=== PATIENT | male | born 1985 | race Caucasian/White ===

== ENCOUNTER → 2022-04-06 08:58 | Outpatient (BNVA) | payer BC, SELFPAY | PROVIDERS: Visit Provider Family Medicine | DX: Z30.9 Encounter for contraceptive management, unspecified (principal); L85.3 Xerosis cutis | CPT/HCPCS: 80053; 80061; 85025 ==

== ENCOUNTER → 2023-04-22 07:41 | Outpatient (BNVA) | payer BC, SELFPAY | PROVIDERS: PCP Family Medicine; Visit Provider Family Medicine Adult Medicine | DX: J02.9 Acute pharyngitis, unspecified (principal); J06.9 Acute upper respiratory infection, unspecified | CPT/HCPCS: 87071; 87400; 87880 ==

== ENCOUNTER → 2024-11-01 08:07 | Outpatient (BNVA) | payer BC, SELFPAY | PROVIDERS: PCP Family Medicine; Visit Provider Family Medicine | DX: R79.89 Other specified abnormal findings of blood chemistry (principal); Z13.6 Encounter for screening for cardiovascular disorders | CPT/HCPCS: 80053; 80061; 84403; 85025; 86140 ==

== ENCOUNTER 2024-12-11 08:37 | Day surgery (SDC) | payer BC, SELFPAY ==
[2024-12-11 08:57] VITALS: BP 116/72; PULSE 52; RESP 16; TEMP 36.2; O2SAT 99; BMI 25.0
--- NOTE | 2024-12-11 09:20 | P.ANESASSM_ITS ---
Pre-Anesthetic Assessment Height/Weight: Height 1.91 m Weight 90.718 kg Temp Pulse Resp BP Pulse Ox O2 Del Method 97.1 F L 52 L 16 116/72 99 Room Air 12/11/24 08:57 12/11/24 08:57 12/11/24 08:57 12/11/24 08:57 12/11/24 08:57 12/11/24 08:57 Preop Diagnosis: screening Operation Date: 12/11/24 10:00 Proposed Procedures p Colonoscopy 29648 G0105 Z12.11(Not Applicable) - Chris Reyes MD Familial anesthetic complications: none Was Beta Jarad taken within 24 hours: N/A Was Clonidine taken within 24 hours: N/A Last intake: Intake Last Liquid Date 12/10/24 Last Liquid Time 22:00 Last Solid Date 12/09/24 Last Solid Time 19:30 Social No alcohol and No tobacco Exam alert, oriented x 3 and clear to auscultation bilaterally Airway Mallampati: Class II History/ROS No significant history except as noted Pulmonary None reported CV/HEM None reported None reported Hepatic None reported GI None reported Metabolic None reported Musc/skel None reported Neuropsych None reported Anesthetic Plan ASA status: 2 Anesthesia: Anesthesia Evaluation and MAC Risk of > 500 ml blood loss (7ml/kg in children): No Medications/Allergies Allergies Allergy/AdvReac Type Severity Reaction Status Date / Time codeine Allergy Unknown Verified 12/06/24 10:50 Current Medications Generic Name Dose Route Start Last Admin Trade Name Freq PRN Reason Stop Dose Admin Sodium Chloride 1,000 mls @ 15 mls/hr 12/11/24 08:54 12/11/24 09:04 Sodium Chloride 0.9% IV 12/12/24 08:53 15 mls/hr .Q24H PRN Administration COLONOSCOPY FLUIDS PFSH Anesthesia Medical History Overweight (BMI 25.0-29.9) URI with cough and congestion Ruptured disk L5, disc was filled back up, 2015 No pertinent past medical history Surgical History No significant past surgical history Family History Grandfather Cancer lung Mother Cancer colorectal Father Cancer pancreatic?? Other Dementia Stroke Denies family history of Diabetes CAD (coronary artery disease) Clotting disorder Hyperlipidemia Psychiatric illness Chronic kidney disease (CKD) Anesthesia complication Bleeding disorder Lung disease Hypertension Social History Smoking and tobacco/nicotine status: former use of tobacco/nicotine Second hand smoke exposure: No Alcohol intake: current Alcohol intake frequency: 0-2 Drinks per Day Substance/Drug Use: never Lives independently: Yes Household members: spouse Housing: House Marital status: Number of children: 2 Current occupational status: employed Current occupation: [employer] Current gender identity: Male
--- NOTE | 2024-12-11 09:51 | P.HP_ITS ---
Same Day Surgery H&P Indication for Procedure/HPI DATE OF PROCEDURE: December 11, 2024 CHIEF COMPLAINT/INDICATIONFOR SURGICAL PROCEDURE: screening colonoscopy PREOP DIAGNOSIS: screening colonoscopy PLANNED PROCEDURE: Operation Date: 12/11/24 10:00 Proposed Procedures p Colonoscopy [id number] G0105 Z12.11(Not Applicable) - Chris Reyes MD Medications/Allergies* Allergies/Adverse Reactions Allergy/AdvReac Type Severity Reaction Status Date / Time codeine Allergy Unknown Verified 12/06/24 10:50 Current Medications: Generic Name Dose Route Start Last Admin Trade Name Freq PRN Reason Stop Dose Admin Sodium Chloride 1,000 mls @ 15 mls/hr 12/11/24 08:54 12/11/24 09:04 Sodium Chloride 0.9% IV 12/12/24 08:53 15 mls/hr .Q24H PRN Administration COLONOSCOPY FLUIDS Pertinent History/Comorbid Conditions* Medical History (Updated 10/31/24 @ 10:15 by Sharath Beverly MD) Overweight (BMI 25.0-29.9) URI with cough and congestion Ruptured disk L5, disc was filled back up, 2014 No pertinent past medical history Surgical History (Updated 12/28/19 @ 14:46 by ALBINA Do) No significant past surgical history Family History (Updated 04/06/22 @ 08:23 by Sharath Beverly MD) Dementia Cancer Grandfather lung Mother colorectal Father pancreatic?? Stroke Denies family history of Diabetes CAD (coronary artery disease) Clotting disorder Hyperlipidemia Psychiatric illness Chronic kidney disease (CKD) Anesthesia complication Bleeding disorder Lung disease Hypertension Social History Smoking and tobacco/nicotine status: former use of tobacco/nicotine Second hand smoke exposure: No Alcohol intake: current Alcohol intake frequency: 0-2 Drinks per Day Substance/Drug Use: never Lives independently: Yes Household members: spouse Housing: House Marital status: Number of children: 2 Current occupational status: employed Current occupation: [employer] Current gender identity: Male Pertinent Exam Findings alert, oriented x 3, clear to auscultation bilaterally, regular rate & rhythm and procedure specific exam findings abdomen soft, nt, nd Recommendations Risks and benefits of procedure reviewed and Patient/family agree to proceed Surgery/Procedure today Coding Level of Care Code Acute Code for Chg Fwd
[2024-12-11 10:14] VITALS: BP 105/67; PULSE 72; RESP 18; TEMP 36.2; O2SAT 98
[2024-12-11 10:35] VITALS: BP 118/73; PULSE 58; RESP 16; O2SAT 98
--- NOTE | 2024-12-11 10:42 | ANE.PACU2 ---
Inpatient post-anesthesia follow up: Airway intact: Yes Vital signs: Temperature 97.2 F Pulse Rate 58 Respiratory Rate 16 Blood Pressure 118/73 Pulse Oximetry 98 Oxygen Delivery Me thod Room Air Oxygen Flow Rate Fraction of Inspir ed Oxygen Hydration adequate: Yes Nausea and vomiting: No Pain level: 1 Mental status: Baseline
== END 2024-12-11 10:42 | disposition home or self-care (01) ==
PROVIDERS: PCP Family Medicine; Visit Provider Student in an Organized Health Care Education/Training Program
PROC: 0DJD8ZZ Inspection of Lower Intestinal Tract, Via Natural or Artificial Opening Endoscopic (ICD-10-PCS; CPT 45378; principal; 2024-12-11 10:00)
DX: Z12.11 Encounter for screening for malignant neoplasm of colon (principal); Z87.891 Personal history of nicotine dependence; Z80.0 Family history of malignant neoplasm of digestive organs; Z80.1 Family history of malignant neoplasm of trachea, bronchus and lung
CPT/HCPCS: 45378; J2704; J7030